=== PATIENT | male | born 1935 | race Caucasian/White ===

== ENCOUNTER 2016-11-07 06:34 | Day surgery (SDC) | payer MEDICARE, OTHER ==
[2016-11-03 08:21] LABS: BASOPHILS 0.3 %; BASOPHILS ABSOLUTE 0.02 10/3/uL (0.0-0.16); EOSINOPHILS 5.2 %; HEMATOCRIT 28.2 % (40.0-51.0); IMMATURE GRANULOCYTES 0.2 %; IMMATURE GRANULOCYTES ABSOLUTE 0.01 10/3/uL (0.0-0.11); LYMPHOCYTES 27.7 %; LYMPHOCYTES ABSOLUTE 1.59 10/3/uL (0.67-4.30); MEAN CORPUS HGB CONC 31.9 g/dL (32.0-36.0); MEAN CORPUSCULAR VOLUME 100.4 fL (80-100); MEAN PLATELET VOLUME 9.2 fL (9.2-13.0); MONOCYTES 9.6 %; MONOCYTES ABSOLUTE 0.55 10/3/uL (0.21-1.20); NEUTROPHILS ABSOLUTE 3.26 10/3/uL (2.02-8.40); PLATELET COUNT 155 10/3/uL (150-400); RBC DISTRIBUTION WIDTH 13.4 % (12.0-16.0); RED CELL COUNT 2.81 10/6/uL (4.7-6.1); WHITE BLOOD CELLS 5.7 10/3/uL (4.5-10.5)
[2016-11-03 08:22] LABS: MANUAL DIFF NO %
[2016-11-03 08:49] LABS: BUN (BLOOD UREA NITROGEN) 47 MG/DL (6-23); CALCIUM, SERUM 7.9 MG/DL (8.5-10.4); CHLORIDE, SERUM 110 MMOL/L (96-112); CO2 (CARBON DIOXIDE) 24 MMOL/L (24-34); CREATININE 3.04 MG/DL (0.70-1.30); GFR AFRICAN AMERICAN 21 ML/MIN (>=60); GFR NON AFRICAN AMERICAN 18 ML/MIN (>=60); GLUCOSE, SERUM 131 MG/DL (60-99); POTASSIUM, SERUM 5.2 MMOL/L (3.5-5.3); SODIUM, SERUM 141 MMOL/L (135-148)
--- NOTE | ~2016-11-07 | OP ---
Record Of Operation [facility] [address] [place]. [address] NAME: CARMELO DAY : 33 STATUS : REG [facility] PAT#: [id number] AGE: 81 ADM/REG DATE : 11/07/16 MR#: [id number] REPORT SERV DATE: 11/07/16 DICTATED BY: RAJ FUENTES DATE: 11/07/16 REPORT STATUS : Draft TRANSCRIBED BY: MODL DATE: 11/07/16 DATE OF PROCEDURE: 11/07/2016 PREOPERATIVE DIAGNOSES: 1. History of left ureteral cancer. 2. History of bladder cancer. POSTOPERATIVE DIAGNOSES: 1. History of left ureteral cancer. 2. History of bladder cancer. PROCEDURE PERFORMED: 1. Cystoscopy with bladder biopsy. 2. Left retrograde pyelogram. ANESTHESIA: General. COMPLICATIONS: None. SPECIMEN: Bladder biopsies from the prostatic urethra, and right lateral wall. ESTIMATED BLOOD LOSS: Minimal. DRAINS: Wilson catheter. INDICATIONS: Mr. Day is an 81-year-old with history of bladder cancer. 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 He presents for his first surveillance cystoscopy along with left retrograde pyelography. His creatinine is elevated and contrast upper tract imaging is not possible other than with retrograde pyelogram. TECHNIQUE: Informed consent was obtained, received Levaquin preop. General anesthesia was administered. Genitals and perineum were prepped and draped in the lithotomy position in sterile fashion. Rigid cystoscopy was performed. The urethra was normal. Prostate was previously resected. There was some heaped up erythematous mucosa at the 6 o'clock position within the prostatic urethra. The bladder was inspected. There were multiple scars on the posterior wall and lateral pires from prior resections. Clear efflux on the right. Left ureteral orifice had been resected. Left ureteroneocystostomy was present at the left upper bladder wall. This appeared widely patent. There was some erythema adjacent to the scar at the right lateral wall. Biopsies were taken from the two areas of erythema in the prostatic urethra and right lateral wall. These were fulgurated with [place] for hemostasis. A [place] catheter was advanced. The left ureteral orifice was easily cannulated and a left retrograde pyelogram was performed. There was smooth left ureteral contour. No filling defect. No hydronephrosis. No hydroureter. All contrast drained quickly after removal of Record Of Operation [address] [place]. [address] NAME: CARMELO DAY : 33 STATUS : REG [facility] PAT#: [id number] AGE: 81 ADM/REG DATE : 11/07/16 MR#: [id number] REPORT SERV DATE: 11/07/16 DICTATED BY: RAJ FUENTES DATE: 11/07/16 REPORT STATUS : Draft TRANSCRIBED BY: MODL DATE: 11/07/16 the [place] catheter. My impression was that of a normal retrograde pyelogram. The bladder was drained. The cystoscope was removed. I placed a Wilson catheter at the end of the case. This will be removed later today. [facility] Raj Fuentes M.D. / [id number] CC: Raj Fuentes M.D. [facility]
[~2016-11-07 06:34] MED LIST: ACTOS15 PO; ACTOS45 PO; AMARYL2 PO; AMARYL4 PO; ASAB PO; BYETTA SC; C1 PO; CEFT5 PO; CIP5 PO; COUMADIN3 MG PO; COUMADIN4 MG PO; COUMADIN6 MG PO; Coumadin PO; DSS PO; EYE INJECTION OP; EYE VITAMIN PO; FESO4 PO; GABAPENTIN PO; HALF81 PO; HYDROCHLOROT12.5 MG PO; INSNOVR SC; JANTOVEN4 MG; JANTOVEN6 MG; KLONO2 PO; LANTUS SC; LIPITOR20 PO; MIRALAXPKT PO; NEUR300 PO; NEUR600 PO; NORV5 PO; NOVOLOG SC; OXYCOD PO; PCET PO; PRIN10 PO; PRIN5 PO; SIN25 PO; SINEMET PO; SYN1 PO; SYNTHROID PO; SYNTHROID137 MCG PO; T PO; ZOCOR PO; ZOCOR40 PO; ZOCOR80 MG PO; ZYRTEC ALLGY10 MG PO
[2016-11-07 07:25] LABS: INTERNATIONAL NORMAL RATI 1.5 UNITS (-)
[2016-11-07 07:26] LABS: PROTIME (NOT ORD) 18.2 SEC (12.0-14.5)
[2017-02-03] MEDS ORDERED: ASAB PO (18:22)
[2017-02-03] MEDS ORDERED: NOVOLOG SC (18:23)
[2017-02-03] MEDS ORDERED: SYN1 PO (18:23)
[2017-02-03] MEDS ORDERED: LANTUS SC (18:23)
[2017-02-03] MEDS ORDERED: NEUR300 PO (18:23)
[2017-02-03] MEDS ORDERED: EQUATE VISION PO (18:24)
[2017-02-03] MEDS ORDERED: ZOCOR40 PO (18:24)
[2017-02-03] MEDS ORDERED: C1 PO (18:25)
[2017-02-03] MEDS ORDERED: COUMADIN6 MG PO (18:25)
[2017-02-05] MEDS ORDERED: NORV10 PO (13:05)
[2017-02-05] MEDS ORDERED: APRES25 PO (13:06)
== END 2016-11-07 16:02 | disposition home or self-care (01) ==
LOC: SDC 06:34
PROVIDERS: Urology
PROC: BT1FZZZ Fluoroscopy of Left Kidney, Ureter and Bladder (ICD-10-PCS; 2016-11-07)
PROC: 0TBB8ZX Excision of Bladder, Via Natural or Artificial Opening Endoscopic, Diagnostic (ICD-10-PCS; principal; 2016-11-07 07:45)
DX: N30.20 Other chronic cystitis without hematuria (principal); I25.10 Atherosclerotic heart disease of native coronary artery without angina pectoris; E78.5 Hyperlipidemia, unspecified; N40.0 Benign prostatic hyperplasia without lower urinary tract symptoms; N18.4 Chronic kidney disease, stage 4 (severe); I12.9 Hypertensive chronic kidney disease with stage 1 through stage 4 chronic kidney disease, or unspecified chronic kidney disease; E11.9 Type 2 diabetes mellitus without complications; I25.2 Old myocardial infarction; Z85.51 Personal history of malignant neoplasm of bladder; Z95.1 Presence of aortocoronary bypass graft
CPT/HCPCS: 80048; 82962; 85025; 85610; 88305; 93005; C1758; J2405; J3010; Q9967

== ENCOUNTER 2016-11-22 12:03 | Emergency (ER) | payer MEDICARE, OTHER ==
[2016-11-22 12:48] LABS: BASOPHILS 0.2 %; BASOPHILS ABSOLUTE 0.01 10/3/uL (0.0-0.16); EOSINOPHILS 3.3 %; EOSINOPHILS ABSOLUTE 0.17 10/3/uL (0.0-0.53); HEMATOCRIT 28.9 % (40.0-51.0); HEMOGLOBIN 9.1 g/dL (13.6-17.8); IMMATURE GRANULOCYTES 0.4 %; IMMATURE GRANULOCYTES ABSOLUTE 0.02 10/3/uL (0.0-0.11); LYMPHOCYTES 20.7 %; LYMPHOCYTES ABSOLUTE 1.07 10/3/uL (0.67-4.30); MEAN CORPUS HGB CONC 31.5 g/dL (32.0-36.0); MEAN CORPUSCULAR HEMOGLOB 31.7 pg (26.0-34.0); MEAN CORPUSCULAR VOLUME 100.7 fL (80-100); MEAN PLATELET VOLUME 9.7 fL (9.2-13.0); MONOCYTES 10.1 %; MONOCYTES ABSOLUTE 0.52 10/3/uL (0.21-1.20); NEUTROPHILS 65.3 %; NEUTROPHILS ABSOLUTE 3.38 10/3/uL (2.02-8.40); PLATELET COUNT 126 10/3/uL (150-400); RBC DISTRIBUTION WIDTH 13.6 % (12.0-16.0); RED CELL COUNT 2.87 10/6/uL (4.7-6.1); WHITE BLOOD CELLS 5.2 10/3/uL (4.5-10.5)
[2016-11-22 12:49] LABS: MANUAL DIFF NO %
[2016-11-22 12:56] LABS: INTERNATIONAL NORMAL RATI 2.1 UNITS (-); PARTIAL THROMBO TIME 34.3 SEC (22.5-37.2); PROTIME (NOT ORD) 23.1 SEC (12.0-14.5)
[2016-11-22 13:08] LABS: CALCIUM, SERUM 7.6 MG/DL (8.5-10.4); CHLORIDE, SERUM 114 MMOL/L (96-112); CO2 (CARBON DIOXIDE) 26 MMOL/L (24-34); CREATININE 2.59 MG/DL (0.70-1.30); GFR AFRICAN AMERICAN 26 ML/MIN (>=60); GFR NON AFRICAN AMERICAN 22 ML/MIN (>=60); POTASSIUM, SERUM 5.3 MMOL/L (3.5-5.3); SODIUM, SERUM 144 MMOL/L (135-148)
[2016-11-22 13:12] LABS: BUN (BLOOD UREA NITROGEN) 34 MG/DL (6-23); GLUCOSE, SERUM 180 MG/DL (60-99)
[2016-11-22 13:12] LABS: WBC (NOT ORDERED) (RFLEX) 0 (0-5)
[2016-11-22 13:21] LABS: ASCORBIC ACID (UR NOT ORDER) NEG (NEG); BILIRUBIN, URINE NEGATIVE (NEG); ER URINALYSIS TAT 0 Hrs 09 Mins; KETONE, URINE NEGATIVE (NEG); LEUKOCYTE ESTERASE(NOT OR NEG (NEG); NITRITE (URINE) NEG (NEG)
[2017-02-03] MEDS ORDERED: ASAB PO (18:22)
[2017-02-03] MEDS ORDERED: NEUR300 PO (18:23)
[2017-02-03] MEDS ORDERED: NOVOLOG SC (18:23)
[2017-02-03] MEDS ORDERED: LANTUS SC (18:23)
[2017-02-03] MEDS ORDERED: SYN1 PO (18:23)
[2017-02-03] MEDS ORDERED: EQUATE VISION PO (18:24)
[2017-02-03] MEDS ORDERED: ZOCOR40 PO (18:24)
[2017-02-03] MEDS ORDERED: C1 PO (18:25)
[2017-02-03] MEDS ORDERED: COUMADIN6 MG PO (18:25)
[2017-02-05] MEDS ORDERED: NORV10 PO (13:05)
[2017-02-05] MEDS ORDERED: APRES25 PO (13:06)
== END 2016-11-22 16:07 | disposition home or self-care (01) ==
LOC: ER 12:03
PROVIDERS: Emergency Medicine
DX: I12.9 Hypertensive chronic kidney disease with stage 1 through stage 4 chronic kidney disease, or unspecified chronic kidney disease (principal); N18.9 Chronic kidney disease, unspecified; D53.9 Nutritional anemia, unspecified; G20 Parkinson's disease; E11.22 Type 2 diabetes mellitus with diabetic chronic kidney disease; Z85.51 Personal history of malignant neoplasm of bladder; Z87.891 Personal history of nicotine dependence; Z79.4 Long term (current) use of insulin; Z79.01 Long term (current) use of anticoagulants; Z79.82 Long term (current) use of aspirin; Z79.899 Other long term (current) drug therapy
CPT/HCPCS: 80048; 81001; 85025; 85610; 85730; 99283